=== PATIENT | female | born 1985 | race Caucasian/White ===

== ENCOUNTER 2019-08-02 01:17 | Day surgery (SDC) | payer SELFPAY ==
[2019-08-02 03:36] LABS: ABSOLUTE BASOPHILS # (AUTO) 0.1 10^3/uL (0.0-0.2); ABSOLUTE EOSINOPHILS # (AUTO) 0.2 10^3/uL (0.0-0.6); ABSOLUTE LYMPHOCYTES (AUTO) 2.5 10^3/uL (0.5-4.7); ABSOLUTE MONOCYTES (AUTO) 0.7 10^3/uL (0.1-1.4); ABSOLUTE NEUT (AUTO) 7.6 10^3/uL (1.7-8.2); BASOPHILS % (AUTO) 0.6 % (0-2); EOSINOPHILS % (AUTO) 1.5 % (0-6); HEMATOCRIT 32.9 % (36.0-47.0); HEMOGLOBIN 10.9 g/dL (12.0-15.5); LYMPHOCYTES % (AUTO) 22.3 % (13-45); MEAN CORPUSCULAR HEMOGLOBIN 28.1 pg (27.0-33.4); MEAN CORPUSCULAR HGB CONC 33.1 g/dL (32.0-36.0); MEAN CORPUSCULAR VOLUME 85 fl (80-97); MONOCYTES % (AUTO) 6.7 % (3-13); PLATELET COUNT 442 10^3/uL (150-450); RED BLOOD COUNT 3.88 10^6/uL (3.72-5.28); RED CELL DISTRIBUTION WIDTH 14.2 % (11.5-14.0); SEGMENTED NEUTROPHILS % (AUTO) 68.9 % (42-78); TOTAL CELLS COUNTED % (AUTO) 100 %
[2019-08-02 03:38] LABS: APPEARANCE,URINE SLIGHTLY-CLOUDY; BILIRUBIN,URINE NEGATIVE (NEGATIVE); COLOR,URINE RED; GLUCOSE, URINE NEGATIVE (NEGATIVE); KETONES,URINE NEGATIVE (NEGATIVE); LEUKOCYTE ESTERASE,URINE NEGATIVE (NEGATIVE); NITRITE,URINE NEGATIVE (NEGATIVE); PROTEIN,URINE 100 mg/dL (NEGATIVE); URINE SPECIFIC GRAVITY 1.015; UROBILINOGEN,URINE NEGATIVE mg/dL (<2.0)
--- NOTE | 2019-08-02 07:02 | ER Document Report ---
ED General - General Chief Complaint: Vaginal Bleeding Stated Complaint: VAGINAL PAIN Time Seen by Provider: 08/02/19 05:59 Mode of Arrival: Ambulatory Information source: Patient Notes: 34-year-old woman presents to the emergency department with onset of vaginal bleeding which began during intercourse. She states that she began bleeding approximately 11 PM and the bleeding did not stop after shower and she has continued to bleed having some clots and bright red blood. She is not on any b lood thinners or anticoagulation. She is taking control and has not had a menstrual bleeding in a number of months. TRAVEL OUTSIDE OF THE [place] IN LAST 30 DAYS: No - Related Data Allergies/Adverse Reactions: penicillin G [Penicillin G] Allergy (Verified 04/05/15 17:50) Penicillins Allergy (Verified 04/05/15 17:50) Home Medications: Fluoxetine HCL 10mg. Venlafaxine 75mg Past Medical History - Social History Smoking Status: Never Smoker Family History: Reviewed & Not Pertinent Patient has suicidal ideation: No Patient has homicidal ideation: No Psychiatric Medical History: Reports: Hx Depression Past Surgical History: Reports: Hx Oral Surgery Review of Systems - Review of Systems Notes: Constitutional: Negative for fever. HENT: Negative for sore throat. Eyes: Negative for visual changes. Cardiovascular: Negative for chest pain. Respiratory: Negative for shortness of breath. Gastrointestinal: Negative for abdominal pain, vomiting or diarrhea. Genitourinary: + Vaginal bleeding. Musculoskeletal: Negative for back pain. Skin: Negative for rash. Neurological: Negative for headaches, weakness or numbness. 10 point ROS negative except as marked above and in HPI. Physical Exam - Vital signs Vitals: Temp Pulse Resp BP Pulse Ox 97.8 F 101 H 14 116/80 100 08/02/19 01:37 08/02/19 01:37 08/02/19 01:37 08/02/19 01:37 08/02/19 01:37 - Notes Notes: PHYSICAL EXAMINATION: Physical Exam: General: Well-nourished well-developed in no acute distress HEENT: NC/AT, pupils equal round and reactive to light, MM moist,nares clear, Neck: supple, no adenopathy, no masses. Lungs: clear, no wheezing, no rales no rhonchi CVS: Regular rate and rhythm no murmur gallop or rub Abdomen: Soft active nontender, no masses, no hepatosplenomegaly : Normal external genitalia, blood in the vaginal vault, right lateral vaginal wall with a laceration approximately 3 cm, clot noted in place and mild hemorrhaging. Ext: No edema clubbing or cyanosis. Neuro: Alert and responsive, moving all 4 extremities on command, cranial nerves intact. Skin: Intact no open lesions, no rash PSYCH: Normal mood, normal affect. Course - Re-evaluation Re-evalutation: 08/02/19 07:[address] Williamson, the PROCESS CONTROL ENGINEER on-call and given her a review of the presentation. She states she will see the patient in the ED and evaluate for a treatment plan. - Vital Signs Vital signs: Temp Pulse Resp BP Pulse Ox 98.8 F 100 21 H 122/86 H 97 08/02/19 07:57 08/02/19 07:57 08/02/19 07:57 08/02/19 07:57 08/02/19 07:57 08/02/19 08:17 Patient was seen by PROCESS CONTROL ENGINEER, Dr. Williamson, will need to go to the OR for repair of the laceration. Her colleague Dr. Juan will be taking over the case. - Laboratory Result Diagrams: 08/02/19 03:25 Laboratory results interpreted by me: 08/02/19 08/02/19 02:59 03:25 WBC 11.0 H Hgb 10.9 L Hct 32.9 L RDW 14.2 H Urine Protein 100 H Urine Blood LARGE H Urine Ascorbic Acid 40 H Discharge - Discharge Clinical Impression: Vaginal laceration Qualifiers: Vaginal laceration type: non-obstetric Perineal laceration presence: without perineal laceration Encounter type: initial encounter Foreign body presence: without foreign body Qualified Code(s): S31.41XA - Laceration without foreign body of vagina and vulva, initial encounter Condition: Good Disposition: ADMITTED INPATIENT Admitting Provider: [facility] - Dr. Juan Unit Admitted: OR
[2019-08-02] MEDS ORDERED: DOXYCYCLINE HYCLATE INJ 100 MG VIAL IV ONE (08:06)
--- NOTE | 2019-08-02 08:07 | PDOC H&P ---
History of Present Illness Patient complains of: vaginal bleeding after intercourse History of Present Illness: ANTON GOMEZ is a 34 year old female who arrived to the ER with complaints of heavy vaginal bleeding after vigorous intercourse last night. She states the bleeding started at around 11 PM. I was contacted by the ER doctor Dr. Quinones who indicated that he on his exam he did find a significant vaginal laceration with a blood clot at the apex. This is consistent with the exam that I just performed myself. Patient indicates that she has been n.p.o. essentially n.p.o. since midnight and has had only a sip of water this morning. Past Medical History Psychiatric Medical History: Reports: Depression Social History Information Source: Patient Lives with: Family Smoking Status: Never Smoker Frequency of Alcohol Use: Occasional Hx Recreational Drug Use: No Hx Prescription Drug Abuse: No Family History Family History: Reviewed & Not Pertinent Parental Family History Reviewed: Yes Children Family History Reviewed: Yes Sibling(s) Family History Reviewed.: Yes Medication/Allergy Home Medications: Esomeprazole Magnesium [Nexium] 20 mg PO DAILY 04/05/15 Venlafaxine HCl ER [Effexor Xr 75 mg Cap.sr] 1 cap PO DAILY 04/05/15 Vit No.124/Iron/Folic [ Vitamin Tablet] 1 each PO DAILY 04/15/15 Ibuprofen [Motrin 800 mg Tablet] 800 mg PO Q8HP PRN #60 tablet 04/16/15 Allergies/Adverse Reactions: penicillin G [Penicillin G] Allergy (Verified 04/05/15 17:50) Penicillins Allergy (Verified 04/05/15 17:50) Review of Systems Constitutional: PRESENT: as per HPI Physical Exam - Physical Exam Vital Signs: Temp Pulse Resp BP Pulse Ox 97.9 F 109 H 16 115/59 L 100 08/02/19 07:01 08/02/19 07:01 08/02/19 07:01 08/02/19 07:01 08/02/19 07:01 Intake & Output 08/01/19 08/02/19 08/03/19 06:59 06:59 06:59 Weight 67.132 kg - Gynecological Exam Labia: normal Urethra: normal Introitus: normal Perineum: normal Vagina: other - 4 cm x 3 cm vaginal laceration approximately 1 cm from the int roitus. There is a clot at the apex of the laceration and oozing continues along the edges. The laceration has a depth well into the mucosa and muscularous that I would classify as a second degree laceration. Cervix: normal Cervix: normal Result Laboratory Results: 08/02/19 03:25 08/02/19 08/02/19 02:59 03:25 WBC 11.0 H RBC 3.88 Hgb 10.9 L Hct 32.9 L MCV 85 MCH 28.1 MCHC 33.1 RDW 14.2 H Plt Count 442 Seg Neutrophils % 68.9 Urine Color RED Urine Appearance SLIGHTLY-CLOUDY Urine pH 6.0 Ur Specific [place] 1.015 Urine Protein 100 H Urine Glucose (UA) NEGATIVE Urine Ketones NEGATIVE Urine Blood LARGE H Urine Nitrite NEGATIVE Ur Leukocyte Esterase NEGATIVE Urine WBC (Auto) 5 Urine RBC (Auto) >182 Assessment & Plan - Diagnosis (1) Vaginal laceration Is this a current diagnosis for this admission?: Yes - Time Time Spent: 30 to 50 Minutes Critical Time spent with patient: Less than 15 minutes Anticipated discharge: Home Within: within 24 hours - Inpatient Certification Based on my medical assessment, after consideration of the patient's comorbidities, presenting symptoms, or acuity I expect that the services needed warrant INPATIENT care.: Yes I certify that my determination is in accordance with my understanding of Medicare's requirements for reasonable and necessary INPATIENT services [42 CFR 412.3e].: Yes Medical Necessity: Need for Surgery - Plan Summary Plan Summary: patient is in need of repair and would benefit from repair in the OR for improved exposure and anesthesia. This case has been posted with the housing supervisor steno pool and Dr. Juan who is coming customer acquisition specialist at this time has been notified and is willing to perform the repair. Patient should be able to go home after the repair and not require further stay in the hospital unless something unforseen occurs. The procedure has been explained to the patient who is in agreement with plan.
[2019-08-02] MEDS ORDERED: LIDOCAINE 1% INJ-PF (10 MG/ML) 30 ML SDV ONE (08:59)
[2019-08-02] MEDS ORDERED: MIDAZOLAM 2 MG/2 ML INJ ONE (09:20)
[2019-08-02] MEDS ORDERED: PROPOFOL INJ 200 MG/20 ML VIAL IV ONE (09:20)
[2019-08-02] MEDS ORDERED: FENTANYL CITRATE INJ/PF 100 MCG/2 ML AMPUL ONE (09:20)
[2019-08-02] MEDS ORDERED: MEPERIDINE HCL/PF INJ 25 MG/1 ML DISP.SYRIN IV PRN (09:58)
[2019-08-02] MEDS ORDERED: DIPHENHYDRAMINE HCL 50 MG/ML VIAL IV PRN (09:58)
[2019-08-02] MEDS ORDERED: FENTANYL CITRATE INJ/PF 100 MCG/2 ML AMPUL IV PRN ×3 (09:58)
[2019-08-02] MEDS ORDERED: PROMETHAZINE HCL INJ 25 MG/1 ML VIAL IV PRN ×3 (09:58→10:31)
[2019-08-02] MEDS ORDERED: MORPHINE SULFATE 10 MG/ML INJ IV PRN (09:58)
--- NOTE | 2019-08-02 10:26 | EKG REPORT ---
SEVERITY:- OTHERWISE NORMAL ECG - SINUS TACHYCARDIA : Confirmed by: Yves Velázquez MD 02-Aug-2019 10:26:29
[2019-08-02] MEDS ORDERED: RINGERS SOLUTION,LACTATED 1,000 ML IV PRN (10:29)
[2019-08-02] MEDS ORDERED: IBUPROFEN 800 MG TABLET PO PRN (10:29)
[2019-08-02] MEDS ORDERED: OXYCODONE-ACETAMINOPHEN 5-325 MG TABLET PO PRN ×2 (10:29)
--- NOTE | 2019-08-02 10:29 | Operative Report ---
Operative Report DATE OF SURGERY: 08/02/19 PREOPERATIVE DIAGNOSIS: vaginal laceration due to intercourse POSTOPERATIVE DIAGNOSIS: JACOB OPERATION: EUA, Pudendal Block, Vaginal Laceration repair SURGEON: JILLIAN PIERRE ANESTHESIA: LMAC TISSUE REMOVED OR ALTERED: None COMPLICATIONS: None ESTIMATED BLOOD LOSS: 50ml INTRAOPERATIVE FINDINGS: right vaginal sulcus 5cm long by approximately 2cm wide vaginal laceration PROCEDURE: Anesthesia: [Shantel JUAN, Torsten Hernandez CRNA] IVF: [200ml] UOP: [void] Indications: [34yo presenting after intercourse with vaginal laceration and significant bleeding. She denies using any foreign objects during intercourse. The risks, benefits, alternatives to vaginal laceration repair were reviewed and patient desires to proceed with planned procedure. Urine HCG negative. Gonorrhea/Chlamydia swab done in the OR prior to vaginal prep.] Procedure: The patient was taken to the Operating Room where general anesthesia was obtained without difficulty. She was prepped and draped in the normal sterile fashion in the dorsal lithotomy position. Exam under anesthesia was performed and noted above. Pudendal block was performed in the usual fashion. A speculum was placed in the vagina to visualize the laceration. The right vaginal sulcus laceration was repaired in a layered fashion with good hemostasis achieved. At this time there was no further bleeding from any other lacerations and no other lacerations noted. All instruments were removed from the patient's cervix and vagina. Sponge lap needle and instrument counts are correct 2. Doxycycline 100 mg IV was given perioperatively. The patient tolerated the procedure well and was taken to the recovery area awake and in stable condition. The patient was discharged home with pain medications and chlamydia was noted positive and patient was treated.
[2019-08-02] MEDS ORDERED: HYDROMORPHONE HCL INJ/PF 2 MG/ML AMPULE IM PRN (10:31)
[2019-08-02] MEDS ORDERED: KETOROLAC TROMETHAMINE INJ/PF 30 MG/1 ML SDV IV PRN (10:36)
[2019-08-02] MEDS ORDERED: ACETAMINOPHEN 1,000 MG/100 ML RTUPB IV PRN (10:37)
[2019-08-02] MEDS ORDERED: KETOROLAC TROMETHAMINE INJ/PF 30 MG/1 ML SDV ONE (10:37)
[2019-08-02] MEDS ORDERED: ACETAMINOPHEN 1,000 MG/100 ML RTUPB IV ONE (10:37)
--- NOTE | 2019-08-02 10:54 | Discharge Summary ---
Discharge Summary (SDC) - Discharge Final Diagnosis: Vaginal laceration after intercourse Date of Surgery: 08/02/19 Discharge Date: 08/02/19 Condition: Good Forms: Return to Work Treatment or Instructions: Pelvic rest fort 6 weeks, NOTHING in vagina F/u in office at [facility] [phone] in 1 wks Prescriptions: Oxycodone HCl/Acetaminophen [Percocet 5-325 mg Tablet] 2 tab PO Q4HP PRN 7 Days #28 tablet PRN Reason: For Pain Scale 3-5 Docusate Sodium [Colace 100 mg Capsule] 100 mg PO BID #60 capsule Ibuprofen [Motrin 800 mg Tablet] 800 mg PO Q8 #90 tablet Referrals: JILLIAN PIERRE MD [ACTIVE STAFF] - Discharge Diet: As Tolerated Respiratory Treatments at Home: Deep Breathing/Coughing Discharge Activity: Activity As Tolerated, Bedrest, Pelvic Rest Home Care Assistance: None Needed Report the Following to Your Physician Immediately: Shortness of Breath, Nausea, Vomiting, Increase in Pain, Fever over 101 Degrees, Drainage-Foul Smelling, Increased Vaginal Bleed
[2019-08-02 11:38] LABS: CHLAM PCR DETECTED (NOT DETECT)
[2019-08-02 12:02] VITALS: BP 109/69
[2019-08-03] MEDS ORDERED: DOCUSATE SODIUM 100 MG CAPSULE PO SCH (10:00)
== END 2019-08-02 11:47 | disposition home or self-care (01) ==
LOC: ER 01:17 → OROUT 08:07 → UNDOADMIN 08:37 → EH 08:37 → UNDODISIN 11:47 → OROUT 11:47
PROVIDERS: ATTEND Obstetrics & Gynecology
DX: S31.41XA Laceration without foreign body of vagina and vulva, initial encounter (principal); X58.XXXA Exposure to other specified factors, initial encounter; A56.02 Chlamydial vulvovaginitis; Z88.0 Allergy status to penicillin
CPT/HCPCS: 93005; 99285; 36415; 85025; 81025; 81001; 87491; 87591; 93010; 00940; 57200; J2250; J3490 ×2; J3010; J1885; J2704; J0131; 940

== ENCOUNTER 2020-04-23 08:00 | Day surgery (SDC) | payer OTHER, MEDICAID ==
[2020-04-20 11:53] LABS: APPEARANCE,URINE CLOUDY; BILIRUBIN,URINE NEGATIVE (NEGATIVE); COLOR,URINE YELLOW; GLUCOSE, URINE NEGATIVE (NEGATIVE); KETONES,URINE NEGATIVE (NEGATIVE); LEUKOCYTE ESTERASE,URINE NEGATIVE (NEGATIVE); NITRITE,URINE NEGATIVE (NEGATIVE); PROTEIN,URINE NEGATIVE (NEGATIVE); URINE SPECIFIC GRAVITY 1.018; UROBILINOGEN,URINE NEGATIVE mg/dL (<2.0)
[2020-04-20 12:16] LABS: HEMATOCRIT 33.8 % (36.0-47.0); HEMOGLOBIN 11.1 g/dL (12.0-15.5); MEAN CORPUSCULAR HEMOGLOBIN 25.2 pg (27.0-33.4); MEAN CORPUSCULAR HGB CONC 32.9 g/dL (32.0-36.0); MEAN CORPUSCULAR VOLUME 77 fl (80-97); PLATELET COUNT 482 10^3/uL (150-450); RED BLOOD COUNT 4.42 10^6/uL (3.72-5.28); RED CELL DISTRIBUTION WIDTH 14.8 % (11.5-14.0); WHITE BLOOD COUNT 7.9 10^3/uL (4.0-10.5)
[~2020-04-23 08:00] MED LIST: CLINDAMYCIN 900 MG/D5W RTU 900 MG/50 ML RTUPB IV PRN; FENTANYL CITRATE INJ/PF 100 MCG/2 ML AMPUL ONE; MIDAZOLAM 2 MG/2 ML INJ ONE; ONDANSETRON HCL INJ/PF 4 MG/2 ML SDV ONE; PROPOFOL INJ 200 MG/20 ML VIAL IV ONE; SUGAMMADEX SODIUM 200 MG/2 ML SDV IV ONE
[2020-04-23] MEDS ORDERED: CLINDAMYCIN 900 MG/D5W RTU 900 MG/50 ML RTUPB IV ONE (08:44)
[2020-04-23] MEDS ORDERED: DIPHENHYDRAMINE HCL 50 MG/ML VIAL IV PRN (09:43)
[2020-04-23] MEDS ORDERED: PROMETHAZINE HCL INJ 25 MG/1 ML VIAL IV PRN ×2 (09:43)
[2020-04-23] MEDS ORDERED: ONDANSETRON HCL INJ/PF 4 MG/2 ML SDV IV PRN (09:43)
[2020-04-23] MEDS ORDERED: MORPHINE SULFATE 10 MG/ML INJ IV PRN (09:43)
[2020-04-23] MEDS ORDERED: FENTANYL CITRATE INJ/PF 100 MCG/2 ML AMPUL IV PRN ×3 (09:43)
[2020-04-23] MEDS ORDERED: MEPERIDINE HCL/PF INJ 25 MG/1 ML DISP.SYRIN IV PRN (09:43)
[2020-04-23] MEDS ORDERED: BUPIVACAINE HCL 0.25 % INJ/PF (2.5 MG/1 ML) 30 ML VIAL ONE (12:12)
[2020-04-23] MEDS ORDERED: HYDROMORPHONE HCL INJ/PF 2 MG/ML AMPULE ONE (13:39)
[2020-04-23] MEDS ORDERED: ACETAMINOPHEN 1,000 MG/100 ML RTUPB IV ONE ×2 (13:39→14:45)
[2020-04-23] MEDS ORDERED: KETOROLAC TROMETHAMINE INJ/PF 30 MG/1 ML SDV ONE (14:12)
[2020-04-23] MEDS ORDERED: OXYCODONE-ACETAMINOPHEN 5-325 MG TABLET ONE (14:24)
[2020-04-23] MEDS ORDERED: HYDROMORPHONE HCL INJ/PF 2 MG/ML AMPULE IV PRN (14:24)
[2020-04-23] MEDS ORDERED: RINGERS SOLUTION,LACTATED 1,000 ML IV PRN (14:24)
[2020-04-23] MEDS ORDERED: OXYCODONE-ACETAMINOPHEN 5-325 MG TABLET PO PRN ×2 (14:24→14:25)
[2020-04-23] MEDS ORDERED: IBUPROFEN 800 MG TABLET PO PRN (14:24)
[2020-04-23] MEDS ORDERED: KETOROLAC TROMETHAMINE INJ/PF 30 MG/1 ML SDV IV PRN (14:26)
[2020-04-23] MEDS ORDERED: SUCCINYLCHOLINE CHLORIDE INJ 200 MG/10 ML VIAL ONE (14:33)
[2020-04-23] MEDS ORDERED: ROCURONIUM BROMIDE INJ 50 MG/5 ML VIAL IV ONE (14:33)
[2020-04-23 15:52] VITALS: BP 131/85
--- NOTE | 2020-04-30 09:06 | Operative Report ---
Operative Report DATE OF SURGERY: 04/23/20 PREOPERATIVE DIAGNOSIS: Undesired Fertility POSTOPERATIVE DIAGNOSIS: Undesired Fertility OPERATION: Laparoscopic BTL with Filschie Clips SURGEON: JILLIAN PIERRE ANESTHESIA: GA TISSUE REMOVED OR ALTERED: None COMPLICATIONS: None ESTIMATED BLOOD LOSS: less than 5 INTRAOPERATIVE FINDINGS: normal bilateral tubes and ovaries, normal uterus, possible small areas of endometriosis. PROCEDURE: Anesthesiologist: Junior Leos CRNA IV fluids: [800ml] Urine output: [void prior to OR] Indications: [34yo with undesired fertility. She is 100% sure that she has completed childbearing. The risks, benefits, alternatives were reviewed and she desires to proceed with planned procedure.] Procedure: The patient was taken to the operating room where general anesthesia was obtained without difficulty. The patient was then examined under anesthesia with findings as noted above with a small anteverted uterus. She was then placed in dorsal supine lithotomy position and prepped and draped in the normal sterile fashion. Jackhorn speculum was then placed in the patient's vagina and the anterior lip of the cervix grasped with a single-tooth tenaculum. A sponge stick uterine manipulator was then advanced into the vagina to provide a means of manipulation of the uterus. The speculum and tenaculum were then removed from the patient's cervix and vagina. Attention was then turned to the patient's abdomen where a 5 mm infraumbilical skin incision was then made. The Optiview trocar with 0 laparoscope was then advanced without difficulty under direct visualization with the Optiview trocar. This was performed while tenting the abdominal wall and these will fashion. Intraperitoneal placement was confirmed by the direct visualization. Pneumoperitoneum was then obtained with approximately 4 L carbon dioxide gas. Survey of the patient's abdomen and pelvis revealed findings as noted above. A second skin incision was then made approximately approimately 2cm superior to pubic symphysis in midline. These incisions were made under direct visualization with the laparoscope. The second trochar was then advanced under direct visualization of the laparoscope at the site. The right fallopian tube was then identified and followed out to the fimbriated end and the Filschie clip was placed in the mid ampullary portion of the fallopian tube. The right ovary was noted to be normal and vasculature remained intact to this ovary. Attention was then turned to the left adnexa at which time the left fallopian tube was identified and followed out to the fimbriated end and filschie clip was placed in the mid ampullary portion of the fallopian tube. All operative sites were visualized and noted to be hemostatic. The additional trochar was removed under direct visualization. The skin at all trocar sites were closed with 3-0 Monocryl in a subcuticular fashion with overlying Dermabond. After completion of skin closure of the trocar sites attention was then turned to the vagina where the sponge stick uterine manipulator was removed and the bivalve speculum was replaced. Silver nitrate was applied to the tenaculum sites for hemostasis and the speculum was removed. Sponge lap needle and instrument counts were correct 3. The patient tolerated the procedure well and was taken to the recovery area awake and in stable condition.
== END 2020-04-23 16:05 | disposition home or self-care (01) ==
LOC: OROUT 08:00
PROVIDERS: ATTEND Student in an Organized Health Care Education/Training Program
DX: Z30.2 Encounter for sterilization (principal); K21.9 Gastro-esophageal reflux disease without esophagitis; F32.9 Major depressive disorder, single episode, unspecified; Z03.818 Encounter for observation for suspected exposure to other biological agents ruled out; Z79.899 Other long term (current) drug therapy
CPT/HCPCS: 86900; 86901; 36415; 86850; 85027; 87635; 81005; 81025; 00851; 58671; J2250; J3490 ×3; J3010; J1885; J1170; J0330; J2405; J2704; J0131; C9803; 851